=== PATIENT | female | born 1995 | race Caucasian/White ===

== ENCOUNTER 2020-03-01 12:35 | Outpatient (CLI) | payer BC ==
--- NOTE | 2020-03-01 15:44 | XRAY Report ---
PROCEDURE: Chest 2 View X-Ray INDICATIONS: ACUTE UPPER RESPIRATORY INFECTION UNSPECIFIED TECHNIQUE: 2 view(s) of the chest. COMPARISON: None. FINDINGS: Surgical changes and devices: None. Lungs and pleura: No pleural effusions or pneumothorax. Lungs are clear. Mediastinum: Mediastinal contours are normal. Heart size is normal. Bones and chest wall: No suspicious bony abnormalities. Soft tissues appear unremarkable. IMPRESSION: The lung parenchyma appears normal, no pneumonia is suspected. Reviewed by: Simon Erickson MD on 03/01/2020 3:43 PM PST Approved by: Simon Erickson MD on 03/01/2020 3:43 PM [facility] Station ID: [id number]
== END 2020-03-01 23:59 ==
LOC: DI.N 12:35
PROVIDERS: ATTEND Nurse Practitioner
DX: J06.9 Acute upper respiratory infection, unspecified (principal); Z20.822 Contact with and (suspected) exposure to COVID-19
CPT/HCPCS: 87070; 87275; 87276

== ENCOUNTER 2020-06-19 22:21 | Emergency (ER) | payer BC ==
--- OUTSIDE RECORDS SUMMARY | 2020-06-19 22:24 | EXTERNAL MEDICAL SUMMARY RPT | Continuity of Care Document ---
:1995 Demographics Phone Unavailable Preferred Language Turkish Marital Status Unknown Amish Affiliation Unknown Race Unknown Ethnic Group Unknown Author Organization [place] Address [address] [phone] Phone Care Team Providers Name Role Phone Jenn Sánchez Unavailable Unavailable Procedures date description facility 20200522 [facility] Vital Signs date measurement value source 20200522 weight_standard 213.98 lb 20200522 weight_metric 97.06 kg 20200522 temperature_standard 98.1 F 20200522 temperature_metric 36.72 C 20200522 respiration_rate 14 /min 20200522 height_standard 67 in 20200522 height_metric 170.18 cm 20200522 heart_rate 64 /min 20200522 BP_systolic 130 mm[Hg] 20200522 BP_diastolic 60 mm[Hg] 20200522 BMI 33.5 kg/m2 Social History date description facility [id number]
--- OUTSIDE RECORDS SUMMARY | 2020-06-19 22:33 | EXTERNAL MEDICAL SUMMARY RPT | Continuity of Care Document ---
:1995 Demographics Phone Unavailable Preferred Language Albanian Marital Status Unknown Anglican Affiliation Unknown Race Unknown Ethnic Group Unknown Author Organization [place] Address [address] [id number] Phone Care Team Providers Name Role Phone Jenn Sánchez Unavailable Unavailable Procedures date description facility 20200522 [facility] Vital Signs date measurement value source 20200522 weight_standard 213.98 lb 20200522 weight_metric 97.06 kg 20200522 temperature_standard 98.1 F 20200522 temperature_metric 36.72 C 20200522 respiration_rate 14 /min 20200522 height_standard 67 in 20200522 height_metric 170.18 cm 20200522 heart_rate 64 /min 20200522 BP_systolic 130 mm[Hg] 20200522 BP_diastolic 60 mm[Hg] 20200522 BMI 33.5 kg/m2 Social History date description facility [id number]
[2020-06-19 23:24] LABS: HCG UR QUAL NEGATIVE
[2020-06-20] MEDS ORDERED: KETOROLAC 30 MG/ML VIAL IM STA (01:00)
[2020-06-20 01:10] VITALS: BP 138/89
--- NOTE | 2020-06-20 07:31 | ED Physician Documentation ---
History of Present Illness - Stated complaint Stated Complaint: R WRIST PX - Chief complaint Chief Complaint: Trauma Ext - History obtained from History obtained from: Patient - Additonal information Additional information: 25-year-old woman with history of multiple prior hand injuries presents with fall onto outstretched hand and right wrist pain sudden in onset, aching constant moderate severity worse with range of motion of the wrist after skateboarding at 8 PM when falling. Patient has no motor or sensory issues. Review of Systems Skin: denies: Lesions, Abrasion (s) Musculoskeletal: reports: Extremity pain, Joint pain Neurologic: denies: Focal weakness, Numbness PD PAST MEDICAL HISTORY - Past Medical History Past Medical History: No - Past Surgical History Past Surgical History: No - Present Medications Home Medications: Ambulatory Orders Medication Instructions Recorded Confirmed norgestimate-ethinyl estradioL 1 each PO 06/19/20 [Norgestimate-Ee 0.25-0.035 mg] - Allergies Allergies/Adverse Reactions: Allergies Allergy/AdvReac Type Severity Reaction Status Date / Time No Known Drug Allergies Allergy Verified 06/19/20 22:41 - Social History Does the pt smoke?: No Smoking Status: Never smoker Does the pt drink ETOH?: Yes Does the pt have substance abuse?: No - Immunizations Immunizations are current?: Yes - POLST Patient has POLST: No PD ED PE NORMAL - Vitals Vital signs reviewed: Yes - General General: Alert and oriented X 3, No acute distress, Well developed/nourished - HEENT HEENT: Atraumatic, PERRL, EOMI - Derm Derm: Normal color, Warm and dry - Extremities Extremities: No deformity, Other (Mild swelling to right distal radius. Tender to palpation at right distal radius. Tender with range of motion of the wrist. 2+ radial pulse. Normal sensation and strength.) Results - Vitals Vitals: Vital Signs - 24 hr 06/19/20 06/20/20 06/20/20 22:35 00:41 01:51 Temperature 36.3 C L 36.4 C L 36.4 C L Heart Rate 80 79 79 Respiratory 18 17 17 Rate Blood Pressure 150/92 H 138/89 H 138/89 H O2 Saturation 99 100 100 Oxygen O2 Source Room air - Labs Labs: Laboratory Tests 06/19/20 23:07 Urine HCG, Qual NEGATIVE PD MEDICAL DECISION MAKING - ED course ED course: 25-year-old woman presents with minimally displaced right distal radius fracture. We placed her in a splint and advised her to follow-up with orthopedics. Return precautions given. Departure - Departure Disposition: 01 Home, Self Care Clinical Impression: Distal radius fracture, right Condition: Good Instructions: ED RICE Follow-Up: Oc Ulloa MD [Provider Admit Priv/Credential] - Comments: You were seen in the emergency department for a distal radius fracture entheses a break in the bone of your forearm near the wrist). It is not really displaced but it does have multiple cracks in it. You should wear splint until you follow-up with orthopedics in 1 week. Return to the emergency department if you have any new or worsening symptoms or other concerns. Discharge Date/Time: 06/20/20 01:52
--- NOTE | 2020-06-20 12:50 | XRAY Report ---
PROCEDURE: Hand 3 View RT INDICATIONS: Trauma TECHNIQUE: 5 views of the hand(s) acquired. COMPARISON: Same day wrist radiographs FINDINGS: Bones: No acute fracture of the hand. Intra-articular comminuted fractures of the distal radius. No d islocation. Joint spacing is maintained. Soft tissues: Soft tissue swelling of the wrist. IMPRESSION: No acute fracture of the hand. Intra-articular comminuted fracture of the distal radius. Agree with preliminary report. Reviewed by: Jorge Pelaez DO on 06/20/2020 11:49 AM OJRGE Approved by: Jorge Pelaez DO on 06/20/2020 11:49 AM JORGE Station ID: [id number]
--- NOTE | 2020-06-20 12:52 | XRAY Report ---
PROCEDURE: Wrist 4 View RT INDICATIONS: Trauma TECHNIQUE: 4 views of the wrist were acquired. COMPARISON: None FINDINGS: Bones: There is a comminuted intra-articular fracture of the distal radius. There is slight impaction . No additional fractures. Alignment is normal. Joint spaces are maintained. Scaphoid view: No scaphoid fracture Soft tissues: Soft tissue swelling of the wrist. IMPRESSION: Comminuted mildly impacted intra-articular fracture of the distal radius. Agree with preliminary report. Reviewed by: Jorge Pelaez DO on 06/20/2020 11:51 AM JORGE Approved by: Jorge Pelaez DO on 06/20/2020 11:51 AM JORGE Station ID: [id number]
== END 2020-06-20 01:52 | disposition home or self-care (01) ==
LOC: ED 22:21
DX: S52.571A Other intraarticular fracture of lower end of right radius, initial encounter for closed fracture (principal); V00.131A Fall from skateboard, initial encounter; Y93.51 Activity, roller skating (inline) and skateboarding
CPT/HCPCS: 81025; 96372; 99283

== ENCOUNTER 2020-06-29 12:25 | Outpatient (CLI) | payer BC ==
--- NOTE | 2020-06-29 09:40 | XRAY Report ---
PROCEDURE: Wrist 3 View RT INDICATIONS: FX OF LWER END OF RIGHT RADIUS TECHNIQUE: 3 views of the wrist were acquired. COMPARISON: 06/19/2020 FINDINGS: Bones: Again noted is nondisplaced intra-articular fracture involving distal radius not significantly changed from prior study. No new fracture or dislocation. Alignment of wrist is anatomic. No suspici ous bony lesions. Scaphoid view: Scaphoid is intact. No evidence of avascular necrosis. Soft tissues: No suspicious soft tissue calcifications. IMPRESSION: Nondisplaced comminuted intra-articular distal radial fracture with stable wrist alignment. No new fr acture or dislocation. Reviewed by: Kevin Nunes MD on 06/29/2020 9:38 AM PDT Approved by: Kevin Nunes MD on 06/29/2020 9:38 AM PDT Station ID: [id number]
== END 2020-06-29 23:59 | disposition home or self-care (01) ==
LOC: DI.N 12:25
PROVIDERS: ATTEND Orthopaedic Surgery
DX: S52.571D Other intraarticular fracture of lower end of right radius, subsequent encounter for closed fracture with routine healing (principal)

== ENCOUNTER 2020-08-03 18:00 | Outpatient (CLI) | payer BC ==
--- NOTE | 2020-08-03 13:25 | XRAY Report ---
PROCEDURE: Wrist 3 View RT INDICATIONS: INTRAARTICULAR FX OF DISTAL R RADIUS TECHNIQUE: 3 views of the wrist were acquired. COMPARISON: 06/19 and 06/29/2020 wrist plain films FINDINGS: Bones: No previously unidentified fractures or dislocations. No suspicious bony lesions. Continued healing in virtual anatomic alignment at distal radius fracture Scaphoid view: Not obtained but the scaphoid visualized has appeared normal Soft tissues: No suspicious soft tissue calcifications. IMPRESSION: Normal alignment maintained during healing, distal radius transverse fracture. Reviewed by: Simon Erickson MD on 08/03/2020 1:24 PM PDT Approved by: Simon Erickson MD on 08/03/2020 1:24 PM PDT Station ID: [id number]
== END 2020-08-03 23:59 | disposition home or self-care (01) ==
LOC: DI.N 18:00
PROVIDERS: ATTEND Orthopaedic Surgery
DX: S52.591D Other fractures of lower end of right radius, subsequent encounter for closed fracture with routine healing (principal)